=== PATIENT | male | born 1990 | race Caucasian/White ===

== ENCOUNTER 2019-05-08 20:24 | Emergency (ER) | payer MEDICAID ==
[~2019-05-08] VITALS: Ht 185.4 cm; Wt 81.7 kg
== END 2019-05-08 21:47 | disposition home or self-care (01) ==
LOC: ED 20:24
DX: S01.511A Laceration without foreign body of lip, initial encounter (principal); W22.8XXA Striking against or struck by other objects, initial encounter; F17.200 Nicotine dependence, unspecified, uncomplicated
CPT/HCPCS: 12011; 90471; 90714; 99282-25